=== PATIENT | female | born 1945 | race Caucasian/White ===

== ENCOUNTER 2025-03-28 18:06 | Emergency (ER) | payer MEDICARE, BC ==
[~2025-03-28] VITALS: Ht 157.5 cm; Wt 69.9 kg
[2025-03-28 18:29] VITALS: TEMP 98.4
[2025-03-28 19:54] LABS: APPEARANCE,URINE CLEAR (CLEAR); BLOOD, URINE 1+ Ery/uL (NEGATIVE); LEUKOCYTE ESTERASE ,URINE NEGATIVE (NEGATIVE); NITRITE, URINE NEGATIVE (NEGATIVE); UGLUCOSE NEGATIVE (NEGATIVE)
[2025-03-28 20:05] LABS: ADD URINE CULTURE NO
[2025-03-28 20:06] LABS: COARSE GRANULAR CASTS,URINE Moderate /LPF (None Seen); SQUAMOUS EPITHELIAL CELL,UR Few /HPF (None Seen)
[2025-03-28] MEDS ORDERED: NIRM1TAB10 PO (20:14)
[2025-03-28 20:27] VITALS: BP 165/105; O2SAT 97
== END 2025-03-28 20:26 | disposition home or self-care (01) ==
LOC: ER 18:14
DX: U07.1 COVID-19 (principal); R05.9 Cough, unspecified; R53.1 Weakness; R07.9 Chest pain, unspecified; I10 Essential (primary) hypertension
CPT/HCPCS: 71045-TC; 81001; 86403-TC; 87070-TC; 93970-TC